=== PATIENT | male | born 1995 | race Caucasian/White ===

== ENCOUNTER 2017-11-04 09:55 | Emergency (ER) | payer MEDICAID ==
[~2017-11-04] VITALS: Ht 172.7 cm; Wt 65.0 kg
[~2017-11-04 09:55] MED LIST: BUPR100T5 PO; DIVAL250 PO; VIST25 PO; [UNRECOGNIZED DRUG - REMARK]
[2017-11-04 14:07] VITALS: BP 142/76
[2017-11-04] MEDS ORDERED: KETOROLAC 60MG/2ML VIAL IM STA (14:07)
[2017-11-04] MEDS ORDERED: METHYLPREDNISOLONE SOD SUCC 125 MG/2 ML VIAL IM STA (14:07)
[2017-11-04] MEDS ORDERED: DIPHENHYDRAMINE 50MG/ML VIAL IM ONE (14:15)
== END 2017-11-04 15:28 | disposition home or self-care (01) ==
LOC: ER 09:55
DX: L40.9 Psoriasis, unspecified (principal); M60.9 Myositis, unspecified; B34.9 Viral infection, unspecified; F17.210 Nicotine dependence, cigarettes, uncomplicated; F12.90 Cannabis use, unspecified, uncomplicated; G40.909 Epilepsy, unspecified, not intractable, without status epilepticus; F41.9 Anxiety disorder, unspecified
CPT/HCPCS: 96372; 99284; J1200; J1885; J2930

== ENCOUNTER 2018-01-24 19:23 | Emergency (ER) | payer MEDICAID ==
[~2018-01-24] VITALS: Ht 167.6 cm; Wt 65.0 kg
[2018-01-24] MEDS ORDERED: HALOPERIDOL LACTATE 5MG/ML VIAL IM ONE (21:45)
[2018-01-24 23:19] LABS: BASOPHILS % 1.2 % (0.0-2.0); EOSINOPHILS % 1.1 % (0.0-5.0); HEMATOCRIT. 36.9 % (42.0-52.0); HEMOGLOBIN. 12.3 g/dL (14.0-18.0); LYMPHOCYTES % 21.2 % (20.0-50.0); MEAN CORPUSCULAR HEMOGLOBIN 28.8 pg (28.0-32.0); MEAN CORPUSCULAR VOLUME 86.3 fL (80.0-94.0); MONOCYTES % 10.1 % (2.0-8.0); NEUTROPHILS % 66.4 % (40.0-76.0); PLATELET 285 x1000/uL (130-400); RED BLOOD CELL COUNT 4.28 mill/uL (4.7-6.1); RED CELL DISTRIBUTION WIDTH 13.8 % (11.6-14.6)
[2018-01-24 23:21] LABS: CHLORIDE 109 mEq/L (98-107)
[2018-01-24 23:30] LABS: ETHANOL BLOOD < 10 mg/dL
[2018-01-25 03:49] LABS: CLARITY URINE CLEAR (CLEAR); COLOR URINE YELLOW (YELLOW); PH URINE 5.5 (4.5-8.0); PROTEIN URINE TRACE (NEGATIVE); SPECIFIC GRAVITY URINE 1.029 (1.005-1.030)
[2018-01-25 03:50] LABS: KETONES URINE TRACE (NEGATIVE); LEUKOCYTE ESTERASE URINE TRACE (NEGATIVE); NITRITE URINE NEGATIVE (NEGATIVE); OCCULT BLOOD URINE NEGATIVE (NEGATIVE)
[2018-01-25 04:06] LABS: *AMPHETAMINES SCREEN URINE PRESUMTIVE POSITIVE (NEGATIVE); *BARBITURATES SCREEN URINE NEGATIVE (NEGATIVE); *BENZODIAZEPINES SCREEN URINE NEGATIVE (NEGATIVE); *COCAINE SCREEN URINE NEGATIVE (NEGATIVE); CANNABINOID URINE SCREEN PRESUMTIVE POSITIVE (NEGATIVE); METHADONE URINE SCREEN NEGATIVE (NEGATIVE); OPIATES URINE SCREEN NEGATIVE (NEGATIVE); PHENCYCLIDINE URINE SCREEN NEGATIVE (NEGATIVE)
[2018-01-25] MEDS ORDERED: DIVALPROEX SODIUM 250MG ER TABLET PO ONE (07:30)
[2018-01-25 14:03] VITALS: BP 126/62
== END 2018-01-25 12:40 | disposition home or self-care (01) ==
LOC: ER 19:29
DX: F15.10 Other stimulant abuse, uncomplicated (principal); R45.851 Suicidal ideations; F41.9 Anxiety disorder, unspecified
CPT/HCPCS: 36415; 80053; 80305; 80307; 80329; 81003; 85025; 96372; 99284; G0482; J1630; Z7610